=== PATIENT | female | born 1955 | race Caucasian/White ===

== ENCOUNTER 2025-08-20 12:33 | Day surgery (SDC) | payer MEDICARE ==
[2025-08-20] MEDS ORDERED: Sodium Bicarbonate 2.5 MEQ/5 ML SDV ONE (12:55)
[2025-08-20 12:57] VITALS: BP 182/82; TEMP 97.4
== END 2025-08-20 13:35 | disposition home or self-care (01) ==
LOC: CSHULT 12:33
PROVIDERS: ATTEND Specialist
PROC: 0G9H3ZX Drainage of Right Thyroid Gland Lobe, Percutaneous Approach, Diagnostic (ICD-10-PCS; principal; 2025-08-20)
DX: E04.1 Nontoxic single thyroid nodule (principal); E78.00 Pure hypercholesterolemia, unspecified; H81.12 Benign paroxysmal vertigo, left ear; Z90.710 Acquired absence of both cervix and uterus; Z79.899 Other long term (current) drug therapy
CPT/HCPCS: 10005; 88173